=== PATIENT | male | born 1960 | race Caucasian/White ===

== ENCOUNTER 2022-12-03 05:33 | Day surgery (SDC) | payer BC ==
[2022-11-30 16:20] VITALS: BP 139/95
[~2022-12-03] VITALS: Ht 180.3 cm; Wt 102.7 kg
[~2022-12-03 05:33] MED LIST: DICLOFENAC SODI75 MG PO; GABAPENTIN600 MG PO; LISINOPRIL-HCT1 EACH PO; LISINOPRIL10 MG PO; NORVASC10 MG PO; OXYCODONE HCL5 MG PO; ULTRAM50 MG PO; XARELTO10 MG PO
[2022-12-03 05:56] VITALS: BP 134/82
[2022-12-03 06:01] VITALS: BP 107/68
[2022-12-03 06:08] LABS: BASOPHILS 0.2 % (0-2); EOSINOPHILS 2.6 % (0-6); HEMOGLOBIN 15.1 g/dL (12.0-18.0); LYMPHOCYTES 17.7 % (24-44); MCHC 35.1 g/dl (30-36); MCV 91.3 fl (81-99); MONOCYTES 11.2 % (0-12); NEUTROPHILS 68.3 % (39-80); PLATELET COUNT 182 K/uL (140-440); RBC 4.71 M/ul (4.3-5.7)
[2022-12-03 06:26] LABS: ALBUMIN 4.1 g/dL (3.4-5.0); ALBUMIN/GLOBULIN RATIO 1.46 (1.1-2.4); ANION GAP 13.6 (7-21); BILIRUBIN, TOTAL 0.9 ng/dL (0.2-1.0); BUN/CREATININE RATIO 18.69 (6.0-28.6); CREATININE, SERUM 1.07 mg/dL (0.70-1.30); POTASSIUM 3.6 mmol/L (3.5-5.1); PROTEIN, TOTAL 6.9 g/dL (6.4-8.2)
[2022-12-03] MEDS ORDERED: OXYCODON-ACETA1 EAC2 PO (08:45)
[2022-12-03] MEDS ORDERED: IBUPROFEN600 MG PO (08:45)
[2022-12-03] MEDS ORDERED: ACETAMINOPHEN500 MG PO (08:46)
[2022-12-03 09:15] VITALS: BP 135/68
--- NOTE | 2022-12-03 11:44 | OR ---
[facility] [address] [place], [place] [address] Signed DATE OF OPERATION: 12/03/2022 SURGEON: Alexandru Leon MD PREOPERATIVE DIAGNOSIS: Umbilical hernia. POSTOPERATIVE DIAGNOSIS: Umbilical hernia, less than 4 cm fascial defect. PROCEDURES: 1. Repair of umbilical hernia fascial defect, less than 4 cm. 2. Implantation of Prolene mesh underlay technique. ANESTHESIA: General, LMA; [place], [employer] and local 20 mL of 0.25% Marcaine with epinephrine. INDICATIONS FOR THE PROCEDURE: This 62-year-old white man is known to me from the past having undergone repair of a left inguinal hernia with implantation of mesh. He has done well from that. He is a patient now of Dr. Surjit Del Rio. He has noted hernia in the umbilical area. He has had cholecystectomy in the past. The hernia appears to be at the umbilicus itself. It is generally reducible. He is admitted at this time to undergo repair. He understands the risk of bleeding, infection, and recurrence. He also understands that implantation of Prolene mesh is likely. FINDINGS: The fascial defect was less than 4 cm. Herniated properitoneal fat was noted. Implantation of Prolene mesh in the properitoneal space allowed for covering of the defect and fascial reapproximation transversely. DESCRIPTION OF PROCEDURE: The patient was brought to the operating room, given a general LMA type anesthetic. Preoperative antibiotic Ancef was given and sequential compression device stockings were used. The abdomen was prepared with chlorhexidine solution and draped sterilely. A curvilinear incision was made lateral to the umbilical fold. Dissection carried through the dermis with sharp, blunt, and electrocautery dissection. Herniated properitoneal fat was identified. The dermis over the hernia sac was freed with electrocautery dissection. The fascia surrounding the fascial defect was freed with electrocautery. The fascial defect was somewhat less than 4 cm. The properitoneal space developed Electronically Signed By: ALEXANDRU LEON MD 12/03/22 1144 PATIENT NAME: BIN SALINAS OPERATIVE REPORT DATE OF : 62 REPORT #: [id number] PHYSICIAN: ALXEANDRU LEON MD PCP: SURJIT DEL RIO MD REPORT IS CONFIDENTIAL AND NOT TO BE RELEASED WITHOUT AUTHORIZATION [facility] [address] [place] [id number] Signed bluntly with finger dissection. Hemostasis was assured with electrocautery. A segment of Prolene mesh was cut to a round configuration and secured in an underlay technique with interrupted 0-Prolene suture. The fascial defect was reapproximated with interrupted 0-Prolene in a vertical mattress configuration. A 20 mL of 0.25% Marcaine with epinephrine injected locally. Erica layer was reapproximated with interrupted 2-0 Vicryl and skin closed with running subcuticular 3-0 Vicryl. Steri-Strips were applied. An Acticoat dressing was additionally applied. The patient was ultimately extubated and taken to the recovery room in good condition, having suffered no complications. Sponge, needle, and instrument counts reported as correct x3. MD SOFIA Escobedo/NINOL /[id number] cc: Surjit Del Rio MD Copies: SURJIT DEL RIO MD ~ Electronically Signed By: ALEXANDRU LEON MD 12/03/22 1144 PATIENT NAME: ADAN LUCIBIN PROSPER OPERATIVE REPORT DATE OF : 62 REPORT #: [id number] PHYSICIAN: ALEXANDRU LEON MD PCP: SURJIT DEL RIO MD REPORT IS CONFIDENTIAL AND NOT TO BE RELEASED WITHOUT AUTHORIZATION
--- NOTE | 2022-12-03 20:28 | EKG ---
[facility] [address] [facility] [place], [place] [address] Signed Normal sinus rhythm Normal ECG Confirmed by Asha Jenkins MD ([id number]) on 12/03/2022 8:27:49 PM Electronically Signed By: ASHA JENKINS MD 12/03/222027 PATIENT NAME: ADAN LUCIBIN PROSPER Electrocardiogram DATE OF : 62 PHYSICIAN: ASHA JENKINS MD REPORT #: [id number] REPORT IS CONFIDENTIAL AND NOT TO BE RELEASED WITHOUT AUTHORIZATION
== END 2022-12-03 10:10 | disposition home or self-care (01) ==
LOC: DS 05:33
PROVIDERS: ATTEND Surgery
PROC: 0WUF0JZ Supplement Abdominal Wall with Synthetic Substitute, Open Approach (ICD-10-PCS; principal; 2022-12-03 07:30)
DX: K42.9 Umbilical hernia without obstruction or gangrene (principal); I10 Essential (primary) hypertension; Z90.49 Acquired absence of other specified parts of digestive tract; Z98.890 Other specified postprocedural states; Z79.899 Other long term (current) drug therapy
CPT/HCPCS: 36415; 80053; 85025; 93005; 93010; C1781; J0131; J0690; J1100; J1885; J2001; J2405; J2704; J3010